=== PATIENT | male | born 1965 | race Asian ===

== ENCOUNTER 2024-10-17 18:23 | Emergency (ER) | payer MEDICARE, MEDICAID, SELFPAY ==
[2024-10-17 18:42] VITALS: BP 108/68; PULSE 85; TEMP 36.7; O2SAT 98; BMI 27.7
--- NOTE | 2024-10-17 19:27 | ED_ITS ---
HPI HPI - General Adult General Stated complaint: LEG PAIN Time Seen by Provider: 10/17/24 18:34 Source: patient Limitations: no limitations History of Present Illness HPI narrative: 59-year-old male presents for pain and swelling to his left lower leg. He thinks he may have bumped it last night but he and his significant other are worried about a blood clot. He is never happened before. No chest pain or shor tness of breath. They noted an area of swelling on the left lower leg anterior laterally but he also has some calf tenderness. Related Data Allergies Allergy/AdvReac Type Severity Reaction Status Date / Time No Known Drug Allergies Allergy Verified 10/17/24 18:42 Opioid HPI Opioid Management Most Recent Opioid Data: No Data to Display Review of Systems ROS Narrative A ten point review of systems is negative except as noted above. PFSH PFSH Social History Little interest or pleasure in doing things: not at all Feeling down, depressed, or hopeless: not at all Exam Narrative Exam Narrative: Nurses note and vital signs reviewed and patient is not hypoxic. General: The patient appears well and in no apparent distress. Patient is resting comfortably on cart. Skin: Warm, dry, no pallor noted. There is no rash noted. Head: Normocephalic, atraumatic Eye: Normal conjunctiva, no drainage Ears, Nose, Mouth, and Throat: oral mucosa is moist. Nares patent. Cardiovascular: Regular Rate and Rhythm Respiratory: Patient is in no distress, no accessory muscle use, lungs are clear to auscultation, no wheezing, rales or rhonchi Back: non-tender GI: Soft and nontender Musculoskeletal: His left leg is examined. There is no tenderness in the popliteal fossa. He has an area of swelling on the distal anterior lateral aspect of the lower leg. Skin intact. This is consistent with hematoma. He also has some tenderness in the calf region. Neurological: A&O, normal speech Psychiatric: Cooperative Constitutional Vital Signs, click to edit/add: Last Vital Signs Temp 98.0 F 10/17/24 18:42 Pulse 85 10/17/24 18:42 Resp 18 10/17/24 18:42 BP 108/68 10/17/24 18:42 Pulse Ox 98 10/17/24 18:42 Course Vital Signs Vital signs: Vital Signs Temperature 98.0 F 10/17/24 18:42 Pulse Rate 85 10/17/24 18:42 Respiratory Rate 18 10/17/24 18:42 Blood Pressure 108/68 10/17/24 18:42 Pulse Oximetry 98 10/17/24 18:42 Temperature 98.0 F 10/17/24 18:42 Pulse Rate 85 10/17/24 18:42 Respiratory Rate 18 10/17/24 18:42 Blood Pressure 108/68 10/17/24 18:42 Pulse Oximetry 98 10/17/24 18:42 Medical Decision Making MDM Narrative Medical decision making narrative: Venous Doppler is negative, no evidence of DVT. My clinical impression is that he has a hematoma. Treatment diagnosis and follow-up were discussed with the patient Differential Diagnosis Differential Diagnosis: Hematoma, DVT Imaging Data Left leg Doppler: Radiologist's impression: No evidence of DVT Discharge Plan Discharge Clinical Impression: Hematoma Patient Disposition: Home, Self-Care Time of Disposition Decision: 20:11 Condition: Good Mode of Transportation: Private Vehicle Print Language: [place]ian Instructions: Hematoma (ED) Referrals: Physician,Non-Staff, MD [Primary Care Provider] - 1 week
[2024-10-17] MEDS: KETOROLAC TROMETHAMINE 60 MG/2 ML VIAL IM (20:09)
== END 2024-10-17 20:32 | disposition home or self-care (01) ==
PROVIDERS: Emergency Provider Emergency Medicine
DX: S80.12XA Contusion of left lower leg, initial encounter (principal); X58.XXXA Exposure to other specified factors, initial encounter
CPT/HCPCS: 93971; 99285; J1885